=== PATIENT | male | born 1940 | race Caucasian/White ===

== ENCOUNTER 2024-03-26 10:50 | Day surgery (SDC) | payer MEDICARE, SELFPAY ==
--- NOTE | 2024-03-25 06:36 | EKG_ITS ---
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
[2024-03-25 09:21] VITALS: BMI 17.6
[2024-03-25 10:21] LABS: Collection Type, Urine Clean Catch; Squamous Epithelial Cell,Urine 0 /hpf (0-5)
[2024-03-25 10:30] LABS: Basophils # (Auto) 0.1 Thou/mm3 (0.0-0.2); Basophils % (Auto) 1 % (0-2.5); Eosinophils # (Auto) 0.3 Thou/mm3 (0.0-0.5); Eosinophils % (Auto) 3 % (0-10); Hematocrit 31.7 % (41.0-53.0); Immature Granulocytes % (Auto) 0 % (0-0); Immature Granulocytes Auto 0.02 Thou/mm3 (0.00-0.00); Lymphocytes # (Auto) 4.4 Thou/mm3 (1.0-4.8); Lymphocytes % (Auto) 46 % (10-50); Mean Corpuscular HGB Conc 34.7 g/dl (31.0-37.0); Mean Corpuscular Hemoglobin 30.8 pg (25.0-35.0); Mean Corpuscular Volume 89 fL (80-100); Monocytes # (Auto) 0.8 Thou/mm3 (0.0-0.8); Monocytes % (Auto) 9 % (0-12); Neutrophils % (Auto) 42 % (37-80); Nucleated Red Blood Cell % 0 /100 WBC (0); Platelet Count 246 Thou/mm3 (140-440); RDW Standard Deviation 44.5 fL (35.1-43.9); Red Blood Count 3.57 Miln/mm3 (4.50-5.90); White Blood Count 9.5 Thou/mm3 (3.8-10.6)
[2024-03-25 10:35] LABS: Bilirubin,Urine Negative (Negative); Blood,Urine Negative (Negative); Clarity,Urine Clear (Clear/Hazy); Color,Urine Lt-Yellow (Lt Yel-Yel); Glucose, Urine Negative (Negative); Ketones,Urine Negative (Negative); Leukocyte Esterase,Urine Negative (Negative); Nitrite,Urine Negative (Negative); PH,Urine 6.5 (5.0-7.0); Protein,Urine Negative (Neg - Trace); RBC,Urine 3 /hpf (0-3); Specific Gravity,Urine 1.012 (1.001-1.035); Urobilinogen,Urine Negative mg/dL (0.0-1.0); WBC,Urine < 1 /hpf (0-5)
[2024-03-25 10:41] LABS: Alanine Aminotransferase 18 U/L (10-49); Albumin, Serum 4.1 gm/dL (3.4-4.8); Albumin/Globulin Ratio 1.4 (1.2-2.2); Alkaline Phosphatase 218 U/L (46-116); Anion Gap 11 (7-16); Aspartate Amino Transferase 15 U/L (0-34); BUN/Creatinine Ratio 11 Ratio (12-20); Bilirubin,Total 1.7 mg/dL (0.3-1.2); Blood Urea Nitrogen 16 mg/dL (9-23); Calcium 9.3 mg/dL (8.3-10.6); Calcium (Corrected) 9.3 mg/dL (8.5-10.1); Carbon Dioxide 24.7 mMol/L (20.0-31.0); Chloride 101 mMol/L (98-107); Creatinine (Component) 1.4 mg/dL (0.6-1.3); Estimated Creatinine Clearance 30.7 mL/min (>60); Globulin 2.9 gm/dL (2.3-3.5); Glucose 129 mg/dL (74-106); Osmolality,Calculated 277 (275-295); Potassium 4.1 mMol/L (3.4-5.1); Sodium 137 mMol/L (136-145); eGFR 49 See Note
--- NOTE | 2024-03-25 13:13 | ESHP_ITS ---
RE: IRAIDA VIDAL : 1940 DATE OF ADMISSION: 03/26/2024 HISTORY OF PRESENT ILLNESS: The patient is an 84-year-old male who was in the [facility]. He had sepsis. He was in the ICU. They tried to put the catheter in him and they could not do that because he has urethral stricture. [place] Now he is scheduled to have cystoscopy. Internal visual urethrotomy done. The patient also has hard prostate on examination and he is going to have a transrectal prostatic ultrasound and ultrasound-guided prostatic needle biopsy. PAST SURGICAL HISTORY: The patient had a history of urethral stricture in the past and had internal visual urethrotomy done in 2022. The patient had a history of elevated PSA in the past, previous surgery of colovesical fistula repair. He had a history of colon surgery. He had squamous cell carcinoma and had surgery done for urethral stricture in the past. ALLERGIES: NONE KNOWN. PAST MEDICAL HISTORY: He has no history of diabetes mellitus. He has a history of hypertension. HOME MEDICATIONS: He has been taking blood thinner, which is Brilinta, which has been stopped. PHYSICAL EXAMINATION: HEENT: Normal. NECK: Supple. LUNGS: Clear. CARDIOVASCULAR: Heart sounds are normal. ABDOMEN: Soft without any organomegaly. No guarding. No rigidity. EXTREMITIES: Normal. RECTAL: Revealed a very hard prostatic lobe on the left side. PLAN: The patient is now scheduled to have cystoscopy, internal visual urethrotomy, insertion of the Sandoval catheter, and transrectal prostatic ultrasound with ultrasound-guided prostatic needle biopsy. Planned procedure risks and complications have been discussed with the patient. The patient has understood them and agreed to proceed. The patient had previous prostatic ultrasound and biopsy done, which was reported to be negative for any cancer that was done in 2022. DT: 11:42:55 TT: 13:12:00 Ref: [id number] - TID: [id number]
--- NOTE | 2024-03-25 14:20 | SUR.PREOP ---
Cardiac records and history reviewed with Dr Block.
[2024-03-25 20:42] LABS: Prostate Specific Antigen 13.19 ng/mL (0-4.00)
[2024-03-26] VITALS (7 sets, daily range): BP systolic 131–163; BP diastolic 52–90; PULSE 69–84; RESP 12–18; TEMP 36.2–36.3; O2SAT 96–100; BMI 17.5
[2024-03-26] MEDS: RINGERS LACTATED 1000 ML 1,000 ML 20 ML IV (11:57)
--- NOTE | 2024-03-26 13:30 | SUR.PHASEII ---
pt received from OR in recovery bay 5. pt awake and alert, breathing unlabored on room air. v/s stable. pt has 12fr morales catheter in place. report received from Juan SHORT and Hany WILSON.
--- NOTE | 2024-03-26 13:58 | SUR.PHASEII ---
pt able to tolerate oral fluids without difficulty swallowing or nausea/vomiting.
--- NOTE | 2024-03-26 14:40 | SUR.PHASEII ---
pt awake and alert, breathing unlabored on room air. v/s stable. pt morales catheter in place. pt able to transfer to wheelchair. d/c instructions given with Marylu in room, all questions answered. pt d/c via wheelchair with all belongings.
--- NOTE | 2024-03-26 19:28 | ESOP_ITS ---
RE: IRAIDA VIDAL : 1940 DATE OF OPERATION: 03/26/2024 PREOPERATIVE DIAGNOSIS: Urethral stricture. The patient is having great difficulty urinating. POSTOPERATIVE DIAGNOSIS: Distal urethral stricture, very tight and a long stricture. PROCEDURE PERFORMED: Cystourethroscopy, internal visual urethrotomy for distal urethral stricture and insertion of a 12-Icelandic Sandoval catheter. INDICATION: The patient is an 84-year-old male who has a long history of medical problems. He had a history of colovesical fistula, which was repaired with some urethroplasty done somewhere else. He also had colonic surgery. He had a recent sepsis and he was admitted to [facility]. Several attempts were done to attempt to put the Sandoval catheter, but they were not successful because of very tight urethral stricture. The patient has been able to urinate very slowly and he was sent to me and was seen in the office. The patient had a history of similar problems in the past, had an internal visual urethrotomy done in early of 2022. Cystoscopy, internal visual urethrotomy was planned. The patient also has a very hard left prostatic lobe on rectal examination and his PSA is found to be 13.19. He was now scheduled to have cystoscopy, possible internal visual urethrotomy for urethral stricture and he was also planned to have transrectal prostatic ultrasound with ultrasound-guided prostatic needle biopsy. Planned procedure, risks and complications have been discussed with the patient, the patient's and daughter. They have understood them and agreed to proceed. DESCRIPTION OF PROCEDURE: After the patient was brought to the operating table under adequate monitored anesthesia in dorsal lithotomy position, parts were prepped and draped in the usual fashion. Internal visual urethrotome was inserted into his urethra. After I passed the scope for about 2 cm or so, there is an extremely tight, narrow urethral stricture through which I passed a guidewire, which went all the way up to the bladder. With an internal visual urethrotome, urethrotomy was carried out very carefully at 12 o'clock position. The stricture was for about 2-3 centimeters long. Proximal urethra is open. Prostatic urethra is showing moderate enlargement of prostate. The scope was introduced into the bladder. No intravesical stones or tumors were identified. The scope was removed and on this guidewire, I inserted a 12-Icelandic Sandoval catheter and was placed in the bladder. The catheter was draining well and was connected to a leg bag. I did not perform prostatic needle biopsy at this time because the patient is on blood thinners, which has been stopped for 5 days, which is Brilinta. The patient is 84 years old and he has a small catheter and I do not want him to bleed from the prostatic biopsy, which would obstruct his small urethral Sandoval catheter. We will do and take care of his IPSA and hard nodular prostate later on. DT: 13:58:41 TT: 19:26:00 Ref: [id number] - TID: [id number]
== END 2024-03-26 14:40 | disposition home or self-care (01) ==
LOC: S2EX 15:24
PROVIDERS: Anesthesiology; PCP Internal Medicine; Referring Provider Surgery; Visit Provider Surgery
PROC: 0T7D8ZZ Dilation of Urethra, Via Natural or Artificial Opening Endoscopic (ICD-10-PCS; CPT 52276; principal; 2024-03-26 13:30)
DX: N35.919 Unspecified urethral stricture, male, unspecified site (principal); I10 Essential (primary) hypertension; Z01.810 Encounter for preprocedural cardiovascular examination
CPT/HCPCS: 52341; 36415; 80053; 81001; 84153; 85025; 93005; A4217; J0694; J2250; J2704; J3010; J7120